=== PATIENT | male | born 1940 | race Caucasian/White ===

== ENCOUNTER → 2017-10-18 | Outpatient (CLI) | payer MEDICARE ==
[~2017-10-18] MED LIST: CHLOR25 FT; CHLOR25 PO; CLIN300C99 PO; CLO75 PO; FEXO180T74 PO; FURO-47 PO; ISOS30TA54 PO; LOR5/325 PO; METO25TA23 PO; METR45CR10 TP; MONT10TA PO; PIOG30TA27 PO; PRAS10TA8; SIMV-44 PO; SITA1TBM7 PO; TELM80TA5 PO; [UNRECOGNIZED DRUG - CODE] PO; [UNRECOGNIZED DRUG - CODE] PO
== END ==
LOC: LAB 09:40
PROVIDERS: ATTEND Internal Medicine
DX: I50.9 Heart failure, unspecified (principal)
CPT/HCPCS: 36415; 82310; 82374; 82435; 82565; 82947; 84132; 84295; 84520

== ENCOUNTER → 2017-11-21 | Outpatient (CLI) | payer MEDICARE ==
[~2017-11-21] MED LIST changes: +SPIR25TA76 PO
== END ==
LOC: LAB 10:04
PROVIDERS: ATTEND Internal Medicine
DX: N28.9 Disorder of kidney and ureter, unspecified (principal)
CPT/HCPCS: 36415; 82310; 82374; 82435; 82565; 82947; 84132; 84295; 84520

== ENCOUNTER 2018-05-25 09:27 | Emergency (ER) | payer MEDICARE ==
--- NOTE | 2018-05-25 09:24 | ER Report ---
History and Physical Time Seen By MD: 09:23 HPI/ROS CHIEF COMPLAINT: Chest pain, shortness of breath HISTORY OF PRESENT ILLNESS: Patient is a 77-year-old male here with complaints of chest pain, chest pressure, burning pain with radiation to bilateral upper extremities. Patient reports the symptoms have been present for the past 1-1-1/2 weeks and is similar to prior episodes of chest pain. Patient does have a history significant for coronary artery bypass in 1992, stent placement approximately one year ago. Patient reports that symptoms are worse at night and he was evaluated at clinic today at which time he was noted to have persistent chest pain prompting patient to be transferred to the emergency department. Patient reports that pain is 10 out of 10 at time of evaluation. Patient reports an aspirin allergy. Patient denies taking nitroglycerin for symptom management. REVIEW OF SYSTEMS: Constitutional: No fever, no chills. Eyes: No discharge. ENT: No sore throat. Cardiovascular: + chest pain/ chest pressure with radiation to b/l upper extremities, no palpitations. Respiratory: No cough, + shortness of breath. Gastrointestinal: No abdominal pain, no vomiting. Genitourinary: No hematuria. Musculoskeletal: No back pain. Skin: No rashes. Neurological: No headache. Allergies: Coded Allergies: citric acid (Verified Allergy, Unknown, SWELLING, 05/25/18) sodium bicarbonate (Verified Allergy, Unknown, SWELLING, 05/25/18) aspirin (Verified Adverse Reaction, Intermediate, SWELLING, 05/25/18) Home Meds Active Scripts Nateglinide (NATEGLINIDE) 120 Mg Tablet, 1 TAB PO QDAY, #90 TAB 4 Refills Prov:KANU FLORES MD 11/14/17 Reported Medications Furosemide (FUROSEMIDE) 40 Mg Tablet, 1 TAB PO BID, TAB 07/28/17 Prasugrel HCl (Prasugrel HCl) 10 Mg Tablet, DAILY for 90 Days, #90 9 Refills 07/28/17 Montelukast Sodium (SINGULAIR) 10 Mg Tablet, 1 TAB PO QDAY for 10 Days, TAB 06/12/17 Telmisartan (MICARDIS) 80 Mg Tablet, 0.5 TAB PO QDAY 06/12/17 Metoprolol Succinate (METOPROLOL SUCCINATE) 25 Mg Tab.er.24h, 1 TAB PO QDAY TAKE ONE TABLET BY MOUTH EVERY DAY 12/10/13 Simvastatin (Zocor) 40 Mg Tablet, 40 MG PO QHS 06/02/11 Discontinued Reported Medications Isosorbide Mononitrate (ISOSORBIDE MONONITRATE ER) 30 Mg Tab.er.24h, 30 MG PO PRN PRN for CHEST PAIN 12/10/13 Discontinued Scripts Spironolactone (ALDACTONE) 25 Mg Tablet, 12.5 MG PO QDAY for 90 Days, #90 TAB 3 Refills Prov:KANU FLORES MD 10/21/17 Hx Smoking: No Smoking Status: Never Smoker Hx Substance Use Disorder: No Hx Alcohol Use: No Constitutional Vital Sign - Last 24 Hours 05/25/18 05/25/18 05/25/18 05/25/18 09:27 09:30 09:30 09:34 Temp 98.7 Pulse 158 163 Resp 33 B/P (MAP) 144/107 144/107 (119) 150/109 (123) Pulse Ox 98 O2 Delivery Room Air 05/25/18 05/25/18 05/25/18 05/25/18 09:37 09:40 09:45 09:47 Pulse 157 156 Resp 17 B/P (MAP) 131/103 (112) Pulse Ox 98 O2 Delivery Nasal Cannula O2 Flow Rate 2.0 05/25/18 05/25/18 05/25/18 05/25/18 09:50 09:55 09:59 10:05 Pulse 159 164 Resp 22 15 B/P (MAP) 123/89 (100) 133/93 (106) Pulse Ox 98 95 O2 Delivery Nasal Cannula Nasal Cannula O2 Flow Rate 2 05/25/18 05/25/18 05/25/18 05/25/18 10:06 10:10 10:15 10:20 Pulse 162 78 Resp 16 B/P (MAP) 112/76 (88) 117/82 (94) 119/78 (92) Pulse Ox 96 O2 Delivery Nasal Cannula O2 Flow Rate 2 05/25/18 05/25/18 05/25/18 05/25/18 10:25 10:25 10:30 10:35 Pulse 72 72 68 Resp 11 16 12 B/P (MAP) 105/71 (82) Pulse Ox 95 94 93 O2 Delivery Nasal Cannula Nasal Cannula Nasal Cannula O2 Flow Rate 2 2 2 05/25/18 05/25/18 05/25/18 05/25/18 10:45 10:55 11:00 11:15 Pulse 69 72 64 72 Resp 9 20 10 8 B/P (MAP) 113/77 (89) 133/102 (112) 113/73 (86) Pulse Ox 94 94 94 93 O2 Delivery Nasal Cannula Nasal Cannula Nasal Cannula Nasal Cannula O2 Flow Rate 2 2 2 2 Physical Exam General Appearance: The patient is alert, has no immediate need for airway protection and no signs of toxicity. Anxious appearing Eyes: Pupils equal and round no pallor or injection. ENT, Mouth: Mucous membranes are moist. Respiratory: There are no retractions, lungs are clear to auscultation. Cardiovascular: + rapid regular heart rate Gastrointestinal: Abdomen is soft and non tender, no masses, bowel sounds normal. Neurological: No focal neuro deficits Skin: Warm and dry, no rashes. Musculoskeletal: Neck is supple non tender. Extremities are nontender, nonswollen and have full range of motion. DIFFERENTIAL DIAGNOSIS: After history and physical exam differential diagnosis was considered for chest pain including but not limited to myocardial ischemia, pericarditis pulmonary embolus, chest wall pain, pleural inflammation and pu lmonary infectious causes. Medical Decision Making Data Points Result Diagram: 05/25/18 0932 05/25/18 0932 Laboratory Hematology Test 05/25/18 09:32 Red Blood Count 5.21 M/uL (4.00-5.60) Mean Corpuscular Volume 91.8 fL (80.0-96.0) Mean Corpuscular Hemoglobin 31.1 pg (26.0-33.0) Mean Corpuscular Hemoglobin Concent 33.8 g/dL (32.0-36.0) Red Cell Distribution Width 14.9 % (11.5-14.5) Mean Platelet Volume 8.3 fL (7.2-11.1) Neutrophils (%) (Auto) 70.7 % (39.4-72.5) Lymphocytes (%) (Auto) 15.2 % (17.6-49.6) Monocytes (%) (Auto) 11.7 % (4.1-12.4) Eosinophils (%) (Auto) 1.7 % (0.4-6.7) Basophils (%) (Auto) 0.7 % (0.3-1.4) Nucleated RBC Relative Count (auto) 0.0 /100WBC Neutrophils # (Auto) 5.7 K/uL (2.0-7.4) Lymphocytes # (Auto) 1.2 K/uL (1.3-3.6) Monocytes # (Auto) 0.9 K/uL (0.3-1.0) Eosinophils # (Auto) 0.1 K/uL (0.0-0.5) Basophils # (Auto) 0.1 K/uL (0.0-0.1) Nucleated RBC Absolute Count (auto) 0.00 K/uL Prothrombin Time 13.5 seconds (12.0-14.4) Prothromb Time International Ratio 1.03 Activated Partial Thromboplast Time 28 seconds (23-35) Sodium Level 139 mmol/L (137-145) Potassium Level 5.0 mmol/L (3.5-5.0) Chloride Level 107 mmol/L (98-107) Carbon Dioxide Level 21 mmol/L (22-30) Blood Urea Nitrogen 32 mg/dl (9-21) Creatinine 1.80 mg/dl (0.66-1.25) Glomerular Filtration Rate Calc 36.6 Random Glucose 130 mg/dl (75-110) Calcium Level 9.3 mg/dl (8.4-10.2) Total Bilirubin 0.9 mg/dl (0.2-1.3) Aspartate Amino Transf (AST/SGOT) 32 U/L (0-35) Alanine Aminotransferase (ALT/SGPT) 39 U/L (0-56) Alkaline Phosphatase 97 U/L (0-126) Troponin I < 0.012 ng/ml B-Type Natriuretic Peptide 373 pg/ml (0-100) Total Protein 8.4 g/dl (6.3-8.2) Albumin 4.2 g/dl (3.5-5.0) Chemistry Test 05/25/18 09:32 White Blood Count 8.1 k/uL (4.5-11.0) Red Blood Count 5.21 M/uL (4.00-5.60) Hemoglobin 16.2 g/dL (14.0-18.0) Hematocrit 47.8 % (42.0-52.0) Mean Corpuscular Volume 91.8 fL (80.0-96.0) Mean Corpuscular Hemoglobin 31.1 pg (26.0-33.0) Mean Corpuscular Hemoglobin Concent 33.8 g/dL (32.0-36.0) Red Cell Distribution Width 14.9 % (11.5-14.5) Platelet Count 233 K/uL (150-450) Mean Platelet Volume 8.3 fL (7.2-11.1) Neutrophils (%) (Auto) 70.7 % (39.4-72.5) Lymphocytes (%) (Auto) 15.2 % (17.6-49.6) Monocytes (%) (Auto) 11.7 % (4.1-12.4) Eosinophils (%) (Auto) 1.7 % (0.4-6.7) Basophils (%) (Auto) 0.7 % (0.3-1.4) Nucleated RBC Relative Count (auto) 0.0 /100WBC Neutrophils # (Auto) 5.7 K/uL (2.0-7.4) Lymphocytes # (Auto) 1.2 K/uL (1.3-3.6) Monocytes # (Auto) 0.9 K/uL (0.3-1.0) Eosinophils # (Auto) 0.1 K/uL (0.0-0.5) Basophils # (Auto) 0.1 K/uL (0.0-0.1) Nucleated RBC Absolute Count (auto) 0.00 K/uL Prothrombin Time 13.5 seconds (12.0-14.4) Prothromb Time International Ratio 1.03 Activated Partial Thromboplast Time 28 seconds (23-35) Glomerular Filtration Rate Calc 36.6 Calcium Level 9.3 mg/dl (8.4-10.2) Total Bilirubin 0.9 mg/dl (0.2-1.3) Aspartate Amino Transf (AST/SGOT) 32 U/L (0-35) Alanine Aminotransferase (ALT/SGPT) 39 U/L (0-56) Alkaline Phosphatase 97 U/L (0-126) Troponin I < 0.012 ng/ml B-Type Natriuretic Peptide 373 pg/ml (0-100) Total Protein 8.4 g/dl (6.3-8.2) Albumin 4.2 g/dl (3.5-5.0) Coagulation Test 05/25/18 09:32 Prothrombin Time 13.5 seconds Prothromb Time International Ratio 1.03 Activated Partial Thromboplast Time 28 seconds EKG/Imaging EKG Interpretation Please see serial EKG imaging. Initial 12-lead EKG showed sinus tachycardia rate in the 150s. Post repeat EKG after diltiazem showed normal sinus rhythm with PVCs rate in the 70s. Monitor Interpretation: NSR with PVCs Imaging Location: [facility] Patient: Joey Reagan : 1940 Visit/Account:[id number] Date of Sevice: 05/25/2018 Exam type: CHEST SINGLE AP History: Chest pain, elevated heart rate Comparison: May 17, 2014. Findings: There are sternotomy sutures present. Cardiac silhouette appears normal in size. The lungs are free of acute effusions, infiltrates or edema. There is no evidence of a pneumothorax or pneumomediastinum. IMPRESSION: 1. No acute cardiopulmonary process is seen ED Course/Re-evaluation Clinical Indication for ER IV: IV Access ED Course Patient is a 77-year-old male here with complaints of chest pain and chest pressure with radiation to bilateral upper extremities which started approximately one to one half weeks ago. Patient reports that symptoms have worsened over the past several days are similar to prior heart attacks. Patient has a history significant for CABG, stent placement which was completed in 2016. Patient has an aspirin allergy however is currently being treated with Prasugrel . Patient was seen at clinic this morning at which time he was found to be an normal sinus rhythm rate 70s but later developed rapid heart rate in the 150s shortly prior to arrival in the emergency department. Patient was given nitroglycerin 1 tablet sublingual and 5 mg IV diltiazem which gave complete resolution of chest pain and shortness of breath. Repeat EKG showed normal sinus rhythm rate 70s. Due to the patient's significant history of cardiac disease, significant comorbidities, I discussed the patient with [facility] binder lockstitch Dr. Moulton who recommended transfer and admission to hospitalist service. Patient remained hemodynamically stable throughout course. Patient was transferred to [facility] in stable condition. Patient was updated regarding the plan and course of treatment. Decision to Disposition Date: May 25, 2018 Decision to Disposition Time: 12:17 Depart Departure Latest Vital Signs Vital Signs Date Time Temp Pulse Resp B/P (MAP) Pulse Ox O2 Delivery O2 Flow Rate FiO2 05/25/18 11:15 72 8 113/73 (71) 62 Nasal Cannula 2 05/25/18 09:30 98.7 Impression: Primary Impression: Chest pain Additional Impression: Unstable angina Condition: Improved Disposition: XFER TO [facility] (transfer to [facility]) Problem Qualifiers TYREL HUGHES DO May 25, 2018 09:24
--- NOTE | 2018-05-25 09:42 | EKG ---
FACILITY: [facility] PATIENT NAME: MANAS MARIO : [id number] MR: [id number] V: [id number] EXAM DATE: ORDERING PHYSICIAN: TYREL HUGHES TECHNOLOGIST: Test Reason : Chest Pain Blood Pressure : / mmHG Vent. Rate : 156 BPM Atrial Rate : 156 BPM P-R Int : 158 ms QRS Dur : 120 ms QT Int : 324 ms P-R-T Axes : 057 087 032 degrees QTc Int : 522 ms Sinus tachycardia Right bundle branch block Cannot rule out Inferior infarct , age undetermined Abnormal ECG When compared with ECG of 17-MAY-2014 07:14, Vent. rate has increased BY 83 BPM Right bundle branch block is now present Confirmed by Manuel Dyer ([id number]) on 05/25/2018 7:18:42 PM Referred By: Confirmed By:Manuel Herrera
[2018-05-25 09:44] LABS: PLATELET COUNT, AUTOMATED 233 K/uL (150-450)
[2018-05-25] MEDS ORDERED: NS(*) 0.9% 500 ML BAG 500 ML IV ONE (09:45)
[2018-05-25 09:50] LABS: INR 1.03
[2018-05-25] MEDS ORDERED: NS(*) 0.9% 500 ML BAG 0 ML ONE (10:00)
[2018-05-25] MEDS ORDERED: NITROGLYCERIN 0.4 MG SUBL SL ONE (10:00)
[2018-05-25] MEDS ORDERED: DILTIAZEM 5 MG/ML 5ML IVPUSH IVP ONE ×2 (10:10→12:55)
--- NOTE | 2018-05-25 10:15 | RADIOLOGY IMAGING REPORT ---
FACILITY: [facility] PATIENT NAME: Joey Reagan : 1940 MR: [id number] V: [id number] EXAM DATE: ORDERING PHYSICIAN: TYREL HUGHES TECHNOLOGIST: Location: [facility] Patient: Joey Reagan : 1940 Visit/Account:[id number] Date of Sevice: 05/25/2018 Exam type: CHEST SINGLE AP History: Chest pain, elevated heart rate Comparison: May 17, 2014. Findings: There are sternotomy sutures present. Cardiac silhouette appears normal in size. The lungs are free of acute effusions, infiltrates or edema. There is no evidence of a pneumothorax or pneumomediastin um. IMPRESSION: 1. No acute cardiopulmonary process is seen Report Dictated By: Janine Rose MD at 05/25/2018 10:08 AM Report E-Signed By: Janine Rose MD at 05/25/2018 10:09 AM WSN:[email or web address]
--- NOTE | 2018-05-25 11:02 | EKG ---
FACILITY: [facility] [place] PATIENT NAME: MANAS MARIO : [id number] MR: [id number] V: [id number] EXAM DATE: ORDERING PHYSICIAN: TYREL HUGHES TECHNOLOGIST: Test Reason : REPEAT Blood Pressure : / mmHG Vent. Rate : 073 BPM Atrial Rate : 073 BPM P-R Int : 158 ms QRS Dur : 112 ms QT Int : 434 ms P-R-T Axes : 017 072 024 degrees QTc Int : 478 ms Sinus rhythm with occasional premature ventricular complexes and Possible premature atrial complexes with aberrant conduction Inferior-posterior infarct (cited on or before 25-MAY-2018) ST and T wave abnormality, consider lateral ischemia ACUTE NC Right bundle branch block Abnormal ECG When compared with ECG of 25-MAY-2018 09:38, premature ventricular complexes are now present aberrant conduction is now present Vent. rate has decreased BY 83 BPM Confirmed by Manuel Dyer ([id number]) on 05/25/2018 7:17:28 PM Referred By: Confirmed By:Manuel Herrera
[2018-05-25 13:00] VITALS: BP 118/70
== END 2018-05-25 13:10 | disposition short-term general hospital (02) ==
LOC: ER 09:33
DX: I20.0 Unstable angina (principal); R07.9 Chest pain, unspecified; I45.10 Unspecified right bundle-branch block
CPT/HCPCS: 71045; 83880; 84484; 85025; 85610; 85730; 93005; 96361; 96374; 96376; 99285; J3490; J7040; 82040; 82247; 82310; 82374; 82435; 82565; 82947; 84075; 84132; 84155; 84295; 84450; 84460; 84520

== ENCOUNTER → 2018-05-25 | Outpatient (CLI) | payer MEDICARE | LOC: AMB 12:41 | PROVIDERS: ATTEND Nurse Practitioner | DX: I20.0 Unstable angina (principal) | CPT/HCPCS: A0425; A0426 ==

== ENCOUNTER 2018-06-02 09:20 | Emergency (ER) | payer MEDICARE ==
--- NOTE | 2018-06-02 09:37 | ER Report ---
History and Physical Time Seen By MD: 09:32 Hx. of Stated Complaint: PT REPORTS R SIDED CHEST/RIB PAIN, ABLATION ON TUESDAY HPI/ROS CHIEF COMPLAINT: Chest pain HISTORY OF PRESENT ILLNESS: Patient with complaint of right-sided lower chest and rib pain chest pain. Patient was actually seen on 05/25/2018 for episode of chest pain along with supraventricular tachycardia in the 150s. He was subsequently transferred to [facility] at that time he was treated with an ablation at that time. He states that after the ablation he felt like he was "58 years old". He states that yesterday morning he woke up with a right sided rib and chest pain that seems pleuritic in nature. Denies any fevers or chills. He denies shortness of breath. Denies nausea vomiting or diarrhea. Eyes any history of traumatic injury. Patient does have a history of CABG with stent placement in 2017. Patient has an aspirin allergy but is being treated with Prasugrel. REVIEW OF SYSTEMS: Constitutional: No fever, no chills. Eyes: No discharge. ENT: No sore throat. Cardiovascular: Right-sided chest pain pleuritic in nature Respiratory: No cough, no shortness of breath. Gastrointestinal: No abdominal pain, no vomiting. Genitourinary: No hematuria. Musculoskeletal: No back pain. Skin: No rashes. Neurological: No headache. Allergies: Coded Allergies: citric acid (Verified Allergy, Unknown, SWELLING, 06/02/18) sodium bicarbonate (Verified Allergy, Unknown, SWELLING, 06/02/18) aspirin (Verified Adverse Reaction, Intermediate, SWELLING, 06/02/18) Home Meds Active Scripts Nateglinide (NATEGLINIDE) 120 Mg Tablet, 1 TAB PO QDAY, #90 TAB 4 Refills Prov:KANU FLORES MD 11/14/17 Reported Medications Furosemide (FUROSEMIDE) 40 Mg Tablet, 1 TAB PO BID, TAB 07/28/17 Prasugrel HCl (Prasugrel HCl) 10 Mg Tablet, DAILY for 90 Days, #90 9 Refills 07/28/17 Montelukast Sodium (SINGULAIR) 10 Mg Tablet, 1 TAB PO QDAY for 10 Days, TAB 06/12/17 Telmisartan (MICARDIS) 80 Mg Tablet, 0.5 TAB PO QDAY 06/12/17 Metoprolol Succinate (METOPROLOL SUCCINATE) 25 Mg Tab.er.24h, 1 TAB PO QDAY TAKE ONE TABLET BY MOUTH EVERY DAY 12/10/13 Simvastatin (Zocor) 40 Mg Tablet, 40 MG PO QHS 06/02/11 Past Medical/Surgical History Past medical history for CABG, stenting, hypercholesterolemia, history of SVT status post ablation. Hx Smoking: No Smoking Status: Never Smoker Hx Substance Use Disorder: No Hx Alcohol Use: No Constitutional Vital Sign - Last 24 Hours 06/02/18 06/02/18 06/02/18 06/02/18 09:22 09:25 09:30 09:45 Temp 97.5 Pulse 79 76 Resp 20 24 B/P (MAP) 143/96 142/96 (111) 108/74 (85) 104/69 (81) Pulse Ox 90 89 O2 Delivery Room Air 06/02/18 06/02/18 06/02/18 06/02/18 10:00 10:30 10:35 10:38 Pulse 78 78 Resp 31 30 B/P (MAP) 113/67 (82) Pulse Ox 91 87 94 O2 Delivery Room Air Nasal Cannula O2 Flow Rate 2.0 2 06/02/18 06/02/18 06/02/18 06/02/18 10:43 10:58 11:13 11:18 Pulse 74 71 77 69 Resp 24 24 26 28 Pulse Ox 94 93 94 93 06/02/18 06/02/18 06/02/18 06/02/18 11:26 11:30 11:31 11:46 Pulse 72 67 Resp 29 25 B/P (MAP) 91/51 (64) 124/75 (91) Pulse Ox 93 94 06/02/18 06/02/18 12:01 12:05 Pulse 62 Resp 31 B/P (MAP) 118/72 (87) Pulse Ox 93 Physical Exam General Appearance: The patient is alert, has no immediate need for airway protection and no signs of toxicity. Eyes: Pupils equal and round no pallor or injection. ENT, Mouth: Mucous membranes are moist. Respiratory: There are no retractions, lungs are clear to auscultation. Cardiovascular: Regular rate and rhythm. Gastrointestinal: Abdomen is soft and non tender, no masses, bowel sounds normal. Neurological: Awake and alert Skin: Warm and dry, no rashes. Musculoskeletal: Neck is supple non tender. Extremities are nontender, nonswollen and have full range of motion. Medical Decision Making Data Points Result Diagram: 06/02/18 0956 06/02/18 0930 Laboratory Hematology Test 06/02/18 09:30 06/02/18 09:56 Prothrombin Time 13.6 seconds (12.0-14.4) Prothromb Time International Ratio 1.03 Activated Partial Thromboplast Time 28 seconds (23-35) D-Dimer Quantitative (PE/DVT) 6.17 ug/ml (0-0.50) Sodium Level 139 mmol/L (137-145) Potassium Level 4.2 mmol/L (3.5-5.0) Chloride Level 101 mmol/L (98-107) Carbon Dioxide Level 26 mmol/L (22-30) Blood Urea Nitrogen 33 mg/dl (9-21) Creatinine 1.70 mg/dl (0.66-1.25) Glomerular Filtration Rate Calc 39.1 Random Glucose 169 mg/dl (75-110) Calcium Level 9.1 mg/dl (8.4-10.2) Total Bilirubin 1.1 mg/dl (0.2-1.3) Aspartate Amino Transf (AST/SGOT) 26 U/L (0-35) Alanine Aminotransferase (ALT/SGPT) 37 U/L (0-56) Alkaline Phosphatase 91 U/L (0-126) Troponin I 0.112 ng/ml Total Protein 8.3 g/dl (6.3-8.2) Albumin 4.1 g/dl (3.5-5.0) Red Blood Count 4.53 M/uL (4.00-5.60) Mean Corpuscular Volume 93.0 fL (80.0-96.0) Mean Corpuscular Hemoglobin 31.4 pg (26.0-33.0) Mean Corpuscular Hemoglobin Concent 33.7 g/dL (32.0-36.0) Red Cell Distribution Width 14.5 % (11.5-14.5) Mean Platelet Volume 8.2 fL (7.2-11.1) Neutrophils (%) (Auto) 81.2 % (39.4-72.5) Lymphocytes (%) (Auto) 8.5 % (17.6-49.6) Monocytes (%) (Auto) 8.6 % (4.1-12.4) Eosinophils (%) (Auto) 1.3 % (0.4-6.7) Basophils (%) (Auto) 0.4 % (0.3-1.4) Nucleated RBC Relative Count (auto) 0.0 /100WBC Neutrophils # (Auto) 6.0 K/uL (2.0-7.4) Lymphocytes # (Auto) 0.6 K/uL (1.3-3.6) Monocytes # (Auto) 0.6 K/uL (0.3-1.0) Eosinophils # (Auto) 0.1 K/uL (0.0-0.5) Basophils # (Auto) 0.0 K/uL (0.0-0.1) Nucleated RBC Absolute Count (auto) 0.00 K/uL Peripheral Blood Smear No Y/N B-Type Natriuretic Peptide 98 pg/ml (0-100) Chemistry Test 06/02/18 09:30 06/02/18 09:56 Prothrombin Time 13.6 seconds (12.0-14.4) Prothromb Time International Ratio 1.03 Activated Partial Thromboplast Time 28 seconds (23-35) D-Dimer Quantitative (PE/DVT) 6.17 ug/ml (0-0.50) Glomerular Filtration Rate Calc 39.1 Calcium Level 9.1 mg/dl (8.4-10.2) Total Bilirubin 1.1 mg/dl (0.2-1.3) Aspartate Amino Transf (AST/SGOT) 26 U/L (0-35) Alanine Aminotransferase (ALT/SGPT) 37 U/L (0-56) Alkaline Phosphatase 91 U/L (0-126) Troponin I 0.112 ng/ml Total Protein 8.3 g/dl (6.3-8.2) Albumin 4.1 g/dl (3.5-5.0) White Blood Count 7.4 k/uL (4.5-11.0) Red Blood Count 4.53 M/uL (4.00-5.60) Hemoglobin 14.2 g/dL (14.0-18.0) Hematocrit 42.1 % (42.0-52.0) Mean Corpuscular Volume 93.0 fL (80.0-96.0) Mean Corpuscular Hemoglobin 31.4 pg (26.0-33.0) Mean Corpuscular Hemoglobin Concent 33.7 g/dL (32.0-36.0) Red Cell Distribution Width 14.5 % (11.5-14.5) Platelet Count 199 K/uL (150-450) Mean Platelet Volume 8.2 fL (7.2-11.1) Neutrophils (%) (Auto) 81.2 % (39.4-72.5) Lymphocytes (%) (Auto) 8.5 % (17.6-49.6) Monocytes (%) (Auto) 8.6 % (4.1-12.4) Eosinophils (%) (Auto) 1.3 % (0.4-6.7) Basophils (%) (Auto) 0.4 % (0.3-1.4) Nucleated RBC Relative Count (auto) 0.0 /100WBC Neutrophils # (Auto) 6.0 K/uL (2.0-7.4) Lymphocytes # (Auto) 0.6 K/uL (1.3-3.6) Monocytes # (Auto) 0.6 K/uL (0.3-1.0) Eosinophils # (Auto) 0.1 K/uL (0.0-0.5) Basophils # (Auto) 0.0 K/uL (0.0-0.1) Nucleated RBC Absolute Count (auto) 0.00 K/uL Peripheral Blood Smear No Y/N B-Type Natriuretic Peptide 98 pg/ml (0-100) Coagulation Test 06/02/18 09:30 Prothrombin Time 13.6 seconds Prothromb Time International Ratio 1.03 Activated Partial Thromboplast Time 28 seconds D-Dimer Quantitative (PE/DVT) 6.17 ug/ml EKG/Imaging EKG Interpretation EKG shows right bundle branch block with occasional PVCs. Inferior infarct age undetermined. This EKG was compared to one from May 25 which shows SVT at that time. Monitor Interpretation: NSR with PVCs Imaging 06/02/2018 10:25:22 am chest x-ray shows increased pulmonary vasculature also some evidence of small right-sided pleural effusion. ED Course/Re-evaluation ED Course After history and physical exam was performed differential diagnosis was formulated which includes but is not limited to acute coronary syndrome, pulmonary embolism, pneumonia, pneumothorax, musculoskeletal pain. At this time will be troponin d-dimer, patient does have history of renal insufficiency, so patient is positive for d-dimer we'll need to consider possible VQ scan 06/02/2018 10:25:43 am patient returns from his x-rays of feeling quite short of breath at this time. His troponin is elevated at 0.112 also with an elevated d-dimer at 6.1. While this may be related to the patient's recent procedure certainly acute coronary syndrome and/or pulmonary embolism is high in the differential diagnosis based on the patient's symptoms and presentation. He also somewhat hypoxic on room air at 88%, we'll place on oxygen. I'll give empiric dose of Lovenox at this time. Because patient has a GFR of only 34 we are unable to perform a CT scan IV contrast at this time. We are also unable to obtain a VQ scan at this time. I will call to the patient's printing equipment mechanic apprentice at [facility] and we'll try to arrange admission in transport. 06/02/2018 10:43:45 am I spoke with Dr. Barr or [facility]. He agrees patient should be transferred to [facility] for further evaluation and treatment. He requests that we call the hospitalist for acceptance. Awaiting callback at this time. The patient family aware of impending transport. 06/02/2018 10:55:[address] Payne from internal medicine at [facility] Decision to Disposition Date: Jun 02, 2018 Decision to Disposition Time: 10:56 Depart Departure Latest Vital Signs Vital Signs Date Time Temp Pulse Resp B/P (MAP) Pulse Ox O2 Delivery O2 Flow Rate FiO2 06/02/18 12:05 118/72 (87) 06/02/18 12:01 62 31 93 06/02/18 10:38 Nasal Cannula 2 06/02/18 09:22 97.5 Impression: Primary Impression: Chest pain Condition: Improved Disposition: XFER TO [facility] (to [facility]) Referrals: ELIZABETH KHANNA MD (PCP) Problem Qualifiers Primary Impression: Chest pain Chest pain type: chest pain on breathing Qualified Codes: R07.1 - Chest pain on breathing HENRY SANTO MD Jun 02, 2018 09:37
[2018-06-02] MEDS ORDERED: MORPHINE 4 MG/ML SDV IVP ONE (09:40)
--- NOTE | 2018-06-02 09:43 | EKG ---
FACILITY: [facility] PATIENT NAME: MANAS MARIO : [id number] MR: [id number] V: [id number] EXAM DATE: ORDERING PHYSICIAN: HENRY SANTO TECHNOLOGIST: TOÑO Marlow Reason : Blood Pressure : / mmHG Vent. Rate : 081 BPM Atrial Rate : 081 BPM P-R Int : 158 ms QRS Dur : 120 ms QT Int : 422 ms P-R-T Axes : 038 049 013 degrees QTc Int : 490 ms Sinus rhythm with occasional premature ventricular complexes occasional possibly abberantly conducted PAC's Right bundle branch block Inferior infarct (cited on or before 25-MAY-2018) Abnormal ECG When compared with ECG of 25-MAY-2018 10:24, ST depression less pronounced Confirmed by Manuel Dyer ([id number] on 06/02/2018 8:43:41 PM Referred By: HANSA Confirmed By:Manuel Herrera
[2018-06-02 10:06] LABS: PLATELET COUNT, AUTOMATED 199 K/uL (150-450)
[2018-06-02 10:11] LABS: INR 1.03
[2018-06-02] MEDS ORDERED: ENOXAPARIN 100 MG/ML SYR SC ONE (10:25)
[2018-06-02] MEDS ORDERED: fentaNYL CITR 100 MCG/2 ML AMP IVP ONE ×2 (10:30→12:15)
[2018-06-02] MEDS ORDERED: NITROGLYCERIN OINT 1 GM PKT TP ONE (10:30)
--- NOTE | 2018-06-02 11:03 | RADIOLOGY IMAGING REPORT ---
FACILITY: [facility] - [place] PATIENT NAME: Joey Reagan : 1940 MR: [id number] V: [id number] EXAM DATE: ORDERING PHYSICIAN: HENRY SANTO TECHNOLOGIST: [place] [facility] [place] Patient: Joey Reagan : 1940 Visit/Account:[id number] Date of Sevice: 06/02/2018 CHEST PA AND LAT Indication: Chest Pain Comparison: Chest x-ray 05/25/2018 Findings: Lungs: Bibasilar atelectasis is seen. There is no focal airspace opacity. Mediastinum/pulmonary vasculature: Cardiomegaly is unchanged. Pulmonary vasculature is distinct. Bones/soft tissues: Sternotomy wires are unchanged. IMPRESSION: 1. Mild bibasilar atelectasis. No focal airspace opacity or pneumonia. 2. Cardiomegaly without evidence of CHF. Report Dictated By: Zaid Grajeda at 06/02/2018 10:58 AM Report E-Signed By: Zaid Grajeda at 06/02/2018 10:59 AM WSN:[id number]
[2018-06-02 12:05] VITALS: BP 118/72
== END 2018-06-02 12:17 | disposition short-term general hospital (02) ==
LOC: ER 09:42
DX: R07.1 Chest pain on breathing (principal); R06.02 Shortness of breath
CPT/HCPCS: 36415; 71046; 83880; 84484; 85025; 85379; 85610; 85730; 93005; 96374; 96375; 96376; 99285; A9270; J1650; J2270; J3010; 82040; 82247; 82310; 82374; 82435; 82565; 82947; 84075; 84132; 84155; 84295; 84450; 84460; 84520

== ENCOUNTER → 2018-06-02 | Outpatient (CLI) | payer MEDICARE | LOC: AMB 12:02 | PROVIDERS: ATTEND Nurse Practitioner | DX: R07.9 Chest pain, unspecified (principal); R79.89 Other specified abnormal findings of blood chemistry; R06.02 Shortness of breath | CPT/HCPCS: A0425; A0426 ==

== ENCOUNTER → 2019-03-21 | Outpatient (CLI) | payer MEDICARE | LOC: LAB 09:02 | PROVIDERS: ATTEND Internal Medicine Cardiovascular Disease | DX: I25.10 Atherosclerotic heart disease of native coronary artery without angina pectoris (principal); R00.2 Palpitations; G45.1 Carotid artery syndrome (hemispheric); Z95.1 Presence of aortocoronary bypass graft; E78.00 Pure hypercholesterolemia, unspecified | CPT/HCPCS: 36415; 82040; 82247; 82310; 82374; 82435; 82465; 82565; 82947; 83718; 84075; 84132; 84155; 84295; 84450; 84460; 84478; 84520 ==